=== PATIENT | male | born 1950 | race Caucasian/White ===

== ENCOUNTER 2022-02-17 11:44 | Inpatient (IN) ==
[2022-02-17] MEDS ORDERED: Vancomycin 1,000 MG in NS 0.9% 250 ml 250 ML IVPB ONE (11:57)
[2022-02-17] MEDS ORDERED: Piperacillin/Tazobac ADVAN 3.375 GM in NS 0.9% 100 ml BAG 100 ML IV ONE (11:57)
[2022-02-17 12:15] LABS: PCO2 Arterial 56 mmHg (35-45); PO2 Arterial 161 mmHg (80-100)
[2022-02-17] MEDS ORDERED: Acetaminophen IV 1 GM/100ML 1,000 MG/100 ML BAG IV ONE (12:27)
[2022-02-17] MEDS ORDERED: Vancomycin 2,000 MG in NS 0.9% 500 ml BAG 500 ML IVPB ONE (12:30)
[2022-02-17 13:15] LABS: ABS Basophils 0.1 10^3/ul (0-0.2); ABS Lymphocytes 0.7 10^3/ul (1.0-4.8); ABS Monocytes 1.5 10^3/ul (0-0.8); ABS Neutrophils 9.6 10^3/ul (1.5-7.7); Hematocrit 58 % (42-52); Hemoglobin 19.3 g/dL (14.0-18.0); Lymphocyte % 5.9 %; Mean Corpuscular HGB Conc 34 g/dL (31-36); Mean Corpuscular Hemoglobin 30 pg (27-31); Mean Corpuscular Volume 88 fL (80-94); Mean Platelet Volume 9.4 fL (7.4-10.4); Nucleated Red Blood Cells % 0.1; Platelet Count 213 10^3/uL (150-450); Red Blood Count 6.52 10^6 /uL (4.18-5.48); Red Cell Distribution Width 15 % (10-15); White Blood Count 11.9 10^3/uL (3.5-10.8)
[2022-02-17] MEDS ORDERED: Lactated Ringers 1000 ml BAG 1,000 ML IV ONE (13:15)
[2022-02-17 13:23] LABS: Activated Partial Thrombo Time 40.2 seconds (26.0-38.0); INR 1.28 (0.88-1.18)
[2022-02-17 13:48] LABS: C Reactive Protein 201.11 mg/L (<8.01); Creatinine, Serum 3.93 mg/dL (0.67-1.17); Globulin 3.9 g/dL (2-4); Potassium 3.7 mmol/L (3.5-5.0); Total Protein 7.9 g/dL (6.4-8.9); eGFR CKD-EPI 15.6 (>60)
[2022-02-17] MEDS ORDERED: Dexamethasone IV 4 MG/ML VIAL 1 ml VIAL IV SLOW PU ONE (14:01)
[2022-02-17 14:50] LABS: High Sensitivity Troponin 1 Hr 900 pg/mL (<20)
[2022-02-17 14:51] LABS: CKMB ng/mL 16.2 ng/mL (0.6-6.3)
[2022-02-17] MEDS ORDERED: Succinylcholine 200 mg VIAL 20 mg/ml 10 ml VIAL (200 mg) ONE (15:03)
[2022-02-17] MEDS ORDERED: Rocuronium 50 mg VIAL 10 mg/ml 5 ml VIAL (50 mg) ONE (15:03)
[2022-02-17] MEDS ORDERED: Rocuronium 50 mg VIAL 10 mg/ml 5 ml VIAL (50 mg) IV ONE (15:08)
[2022-02-17] MEDS ORDERED: Etomidate 20 mg/10 ml 2 MG/ML 10 ml VIAL IV ONE (15:09)
[2022-02-17] MEDS ORDERED: Etomidate 40 mg/20 ml (2 MG/ML) 20 ml VIAL (40 mg) ONE (15:20)
[2022-02-17] MEDS ORDERED: EPINEPHrine SYR 0.1MG/ML 10 ml SYRINGE ONE (15:31)
[2022-02-17] MEDS ORDERED: fentaNYL 100 mcg/2 ml 50 MCG/ML VIAL ONE (15:45)
[2022-02-17] MEDS ORDERED: Midazolam IV for DRIP 100 MG in NS 0.9% IV SCH (15:45)
[2022-02-17] MEDS ORDERED: Midazolam 5 mg/5 ml VIAL 1 mg/ml 5 ml VIAL (5 mg) ONE (15:46)
[2022-02-17] MEDS ORDERED: Propofol 10 mg/ml 100 ML BTL 100 ML IV SCH (16:00)
[2022-02-17] MEDS ORDERED: fentaNYL INFUSION 50 mcg/mL VL 2,500 MCG/50 ML VIAL IV SCH (16:00)
[2022-02-17] MEDS ORDERED: Midazolam 50 MG PREMIX IV DRIP 50 ML IV SCH (16:00)
[2022-02-17] MEDS ORDERED: Norepinephrine 16MCG/ML BAG NS 4,000 MCG/250 ML BAG IV ONE (16:09)
[2022-02-17] MEDS ORDERED: NS 0.9% 1000 ml BAG 1,000 ML IV ONE (16:11)
[2022-02-17 16:25] VITALS: BP 112/58
[2022-02-17] MEDS ORDERED: Zosyn per Pharmacy NOTE FOLLOW UP SCH (17:00)
[2022-02-17] MEDS ORDERED: Norepinephrine 16MCG/ML BAG NS 4,000 MCG/250 ML BAG IV SCH (17:00)
[2022-02-17] MEDS ORDERED: LORazepam 2 mg VIAL 1 ml IV PUSH PRN (17:21)
[2022-02-17] MEDS ORDERED: Atropine 1% (ORAL/SL) 15 ML BTL SL PRN (17:21)
[2022-02-17] MEDS ORDERED: Ondansetron 4 mg VIAL 2 MG/ML 2 ml VIAL IV PRN (17:21)
[2022-02-17] MEDS ORDERED: Scopolamine 1 mg/72hr PATCH TRANSDERM SCH (18:00)
[2022-02-17] MEDS ORDERED: ZOSYN 3.375 GM Q8H per EXTENDED INFUSION IV SCH (18:30)
== END 2022-02-17 17:53 | disposition short-term general hospital (02) ==
LOC: ED 11:44 → EDHOLD 16:05
PROVIDERS: ADMIT Internal Medicine Critical Care Medicine; ATTEND Internal Medicine Critical Care Medicine